=== PATIENT | female | born 1945 | race Asian ===

== ENCOUNTER → 2017-07-04 | Outpatient (CLI) | payer MEDICARE, MEDICAID ==
[~2017-07-04] MED LIST: ACET325T11 PO; CARV3.12 PO; LISI2.5T55 PO; WARF2.5 PO
[2017-07-04 12:06] LABS: AUTOMATED NEUTROPHIL # 0.9 TH/MM3 (1.8-7.7); BASOPHIL % 2.3 % (0.0-2.0); EOSINOPHIL # 0.1 TH/MM3 (0-0.4); EOSINOPHIL % 5.2 % (0.0-4.0); HEMATOCRIT 36.6 % (35.0-46.0); LYMPH % 32.4 % (9.0-44.0); LYMPHOCYTE # 0.6 TH/MM3 (1.0-4.8); MEAN CELL VOLUME 104.8 FL (80.0-100.0); MEAN CORPUSCULAR HEMOGLOBIN 34.7 PG (27.0-34.0); MEAN CORPUSCULAR HGB CONC 33.1 % (32.0-36.0); MONO % 13.9 % (0.0-8.0); NEUT % 46.2 % (16.0-70.0); PLATELET COUNT 126 TH/MM3 (150-450); RED CELL DISTRIBUTION WIDTH 13.2 % (11.6-17.2); WHITE BLOOD COUNT 1.9 TH/MM3 (4.0-11.0)
[2017-07-04 12:09] LABS: HEMO FLAGS AUTO DIFF
[2017-07-04 12:26] LABS: ALT (GPT) 24 U/L (10-53); ANION GAP 8 MEQ/L (5-15); AST (GOT) 34 U/L (15-37); BICARBONATE 26.9 MEQ/L (21.0-32.0); BLOOD UREA NITROGEN 13 MG/DL (7-18); CHLORIDE 105 MEQ/L (98-107); GLOMERULAR FILTRATION RATE 76 ML/MIN (>89); GLUCOSE,FASTING 78 MG/DL (74-99); POTASSIUM 3.6 MEQ/L (3.5-5.1); SODIUM (NA) 140 MEQ/L (136-145)
[2017-07-04 12:36] LABS: ALKALINE PHOSPHATASE 103 U/L (45-117)
[2017-07-04 13:43] LABS: BASOPHILS 2 % (0-2); EOSINOPHILS 6 % (0-4); METAMYELOCYTES 4 % (0-1); MYELOCYTES 2 % (0-0); NEUTROPHIL # MANUAL DIFF 0.9 TH/MM3 (1.8-7.7); POLYS (SEG NEUTROPHILS) 42 % (16-70); WBC DIFF SAMPLE 50
[2017-07-04 13:44] LABS: PLATELET ESTIMATE SMEAR LOW (NORMAL); PLATELET MORPHOLOGY NORMAL (NORMAL)
[2017-07-04 13:46] LABS: SCAN/DIFF FINAL DIFF MANUAL
== END ==
LOC: ELAB 09:41
PROVIDERS: ATTEND Family Medicine
DX: I48.0 Paroxysmal atrial fibrillation (principal); R53.83 Other fatigue; Z85.038 Personal history of other malignant neoplasm of large intestine; Z95.2 Presence of prosthetic heart valve
CPT/HCPCS: 36415; 80053; 84443; 85007; 85027